=== PATIENT | female | born 1995 | race African-American/Black ===

== ENCOUNTER 2024-10-03 07:42 | Day surgery (SDC) | payer OTHER ==
[2024-09-30 09:01] VITALS: BMI 43.4
--- NOTE | 2024-10-03 07:40 | P.GSHP ---
History of Present Illness H&P Date: 10/03/24 CHIEF COMPLAINT: GERD and dysphagia HISTORY OF PRESENT ILLNESS: The patient is a 28-year-old female who presents reports gastroesophageal reflux disease and dysphagia. Upper endoscopy was offered for further evaluation and management. PAST MEDICAL HISTORY: Please see list. PAST SURGICAL HISTORY: Please see list. MEDICATIONS: Please see list. ALLERGIES: Please see list. SOCIAL HISTORY: No illicit drug use FAMILY HISTORY: No reports of Crohn disease or ulcerative colitis. REVIEW OF ORGAN SYSTEMS: CONSTITUTIONAL: No reports of fevers or chills. GI: Denies any blood in stools or constipation. PHYSICAL EXAM: VITAL SIGNS: Stable GENERAL: Well-developed and pleasant in no acute distress. HEENT: No scleral icterus. Extraocular movements grossly intact. Moist buccal mucosa. NECK: Supple without lymphadenopathy. CHEST: Unlabored respirations. Equal bilateral excursions. CARDIOVASCULAR: Regular rate and rhythm. Distal 2+ pulses. ABDOMEN: Soft, nondistended. MUSCULOSKELETAL: No clubbing, cyanosis, or edema. ASSESSMENT: 1. Gastroesophageal reflux disease 2. Dysphagia PLAN: 1. Recommend proceeding with an upper endoscopy Past Medical History Past Medical History: No Reported History History of Any Multi-Drug Resistant Organisms: None Reported Past Surgical History: No Surgical Hx Reported Past Anesthesia/Blood Transfusion Reactions: No Reported Reaction Additional Past Anesthesia/Blood Transfusion Reaction / Comment(s): Has never had any sedation. Smoking Status: Vaper - Past Family History Mother Family Medical History: CVA/TIA, Hypertension, Seizure Disorder Additional Family Medical History / Comment(s): mini stroke Medications and Allergies Home Medications Medication Instructions Recorded Confirmed Type Cholecalciferol [Vitamin D3 (10 10 mcg PO DAILY 09/30/24 09/30/24 History Mcg = 400 Iu)] Allergies Allergy/AdvReac Type Severity Reaction Status Date / Time No Known Allergies Allergy Verified 09/30/24 08:45
[~2024-10-03 07:42] MED LIST: LIDOCAINE 1% (10MG/ML) FOR IV START INTRADERMA PRN
[2024-10-03] MEDS: IV FLUID CONTINUATION 1,000 ML IV ONE (08:35)
[2024-10-03 08:59] VITALS: RESP 16; TEMP 97.3
[2024-10-03] MEDS: LACTATED RINGERS 1,000 ML IV SCH (09:06)
[2024-10-03] MEDS ORDERED: PROPOFOL 10 MG/ML 20 ML VIAL IV ONE (09:26)
[2024-10-03] MEDS ORDERED: LIDOCAINE 1% INJ 10MG/ML (20 ML MDV) ONE (09:26)
--- NOTE | 2024-10-03 09:47 | P.PCN ---
Date of Procedure: 10/03/24 Description of Procedure: PREOPERATIVE DIAGNOSIS: Gastroesophageal reflux disease. Morbid obesity. Dysphagia POSTOPERATIVE DIAGNOSIS: Gastroesophageal reflux disease. Morbid obesity. Gastritis. OPERATION: Esophagogastroduodenoscopy with cold forceps biopsies along esophagus, antrum and duodenum SURGEON: Shelby Laureano MD ANESTHESIA: MAC. INDICATIONS: The patient is a 28-year-old female who presents with dysphagia and reflux disease. Benefits and risks of the procedure were described. Informed consent was obtained. DESCRIPTION: The patient was brought into the endoscopy suite and laid in the left lateral decubitus position. An Olympus gastroscope was passed along the posterior oropharynx down to the distal esophagus where the squamocolumnar junction was encountered at 35 cm from the incisors. The stomach was entered and no bile reflux was found. Additional findings are listed below. Biopsies with cold forceps were obtained of the antrum. The first through third portion of the duodenum was examined. Retroflexion of the scope confirmed Hill grade 1 lower esophageal valve. The squamocolumnar junction demonstrated LA grade A erosive esophagitis. The stomach was desufflated. The patient tolerated the procedure well. FINDINGS: Squamocolumnar junction 35 cm from the incisors. Diaphragmatic hiatus at 35 cm. Hill grade 1 lower esophageal valve. LA grade A erosive esophagitis. Please obtain Biopsies obtained of the duodenum. Chronic gastritis with biopsies obtained. RECOMMENDATIONS: Upper endoscopy as needed. Plan - Discharge Summary Discharge Rx Participant: Yes New Discharge Prescriptions: Continue Cholecalciferol [Vitamin D3 (10 Mcg = 400 Iu)] 10 mcg PO DAILY Discharge Medication List Cholecalciferol [Vitamin D3 (10 Mcg = 400 Iu)] 10 mcg PO DAILY 09/30/24 [History] Follow up [facility](s[facility]Ref[facility] [place] [facility]24 3:00 pm Patient Instructions/Handouts: Gastritis (GEN) Discharge Disposition: HOME SELF-CARE
[2024-10-03] MEDS: hydrALAZINE HCL 20 MG/ML 1 ML VIAL IVP STA (10:33)
[2024-10-03 10:54] VITALS: BP 133/89; PULSE 77
== END 2024-10-03 11:01 | disposition home or self-care (01) ==
LOC: ORWHC2ENDO 07:42
PROVIDERS: ATTEND Surgery Plastic and Reconstructive Surgery
DX: K21.00 Gastro-esophageal reflux disease with esophagitis, without bleeding (principal); K29.50 Unspecified chronic gastritis without bleeding; B96.81 Helicobacter pylori [H. pylori] as the cause of diseases classified elsewhere; E66.01 Morbid (severe) obesity due to excess calories; F17.290 Nicotine dependence, other tobacco product, uncomplicated
CPT/HCPCS: 81025; 88305; 88342; 43239; J0360; J2003; J2704

== ENCOUNTER → 2024-10-19 | Outpatient (CLI) | payer OTHER ==
[2024-10-19 13:25] VITALS: BP 126/86; PULSE 74; RESP 16; TEMP 98.1; BMI 42.5
--- NOTE | 2024-10-19 15:01 | P.BASOAP ---
Subjective Progress Note Date: 10/19/24 Has positive H pylori. Needs 2 week treatment. Antibotics sent. Going to diet class. Needs food journal. Protein must beat the carbs. Will need breathalyzer test for H. pylori Objective - Vital Signs Vital signs: Vital Signs Temp 98.1 F 10/19/24 13:21 Pulse 74 10/19/24 13:21 Resp 16 10/19/24 13:21 BP 126/86 10/19/24 13:21 Pulse Ox FiO2 Intake & Output 10/18/24 10/19/24 10/19/24 18:59 06:59 18:59 Weight 125.191 kg Assessment/Plan Plan: Date: 10/19/24 Initial Weight: 125.191 kg Initial BMI: 42.5 Current Weight: 125.191 kg Current BMI: 42.5 Type of Surgery: Total Volume in Band: Previous Volume: Volume Removed: Volume Added: Band Size:
== END ==
LOC: BARWHC3 12:47
PROVIDERS: ATTEND Surgery Plastic and Reconstructive Surgery
DX: E66.01 Morbid (severe) obesity due to excess calories (principal); Z68.41 Body mass index [BMI] 40.0-44.9, adult
CPT/HCPCS: 99211